=== PATIENT | male | born 1975 | race Caucasian/White ===

== ENCOUNTER 2020-09-04 06:56 | Outpatient (CLI) | payer BC, SELFPAY ==
--- NOTE | ~2020-09-04 | CT_ITS ---
EXAMINATION: CT cervical spine wo con DATE: 09/04/2020 07:22 INDICATION: Cervical radiculopathy. TECHNIQUE: Computed tomography (CT) of the cervical spine was performed without intravenous contrast. Automated exposure control and iterative reconstruction technique were employed. The dose-length pro duct was 437.17 mGy-cm. COMPARISON: CT cervical spine 06/07/2018 FINDINGS: There is 7 degrees levocurvature of cervical spine. There is kyphosis of cervical spine. Ve rtebral body heights are normal. There are changes of disc replacement at C5-C6. The device is obliqu willa oriented with respect to the vertebral bodies with the left side of the implant 5 mm anterior to the right side of the implant. There is mildly decreased disc height at C3-C4 and C4-C5. The followin g disc levels are specifically discussed: C2-C3: There is mild left uncovertebral joint osteoarthritis. There is mild left facet joint osteoart hritis. There is no neural foraminal stenosis. There is no central canal stenosis. C3-C4: There is moderate bilateral uncovertebral joint osteoarthritis. There is no facet joint osteoa rthritis. There is mild bilateral neural foraminal stenosis. There is mild central canal stenosis. C4-C5: There is mild bilateral uncovertebral joint osteoarthritis. There is no facet joint osteoarthr itis. There is no neural foraminal stenosis. There is mild central canal stenosis. C5-C6: There is severe right and moderate left uncovertebral joint osteoarthritis. There is no facet joint osteoarthritis. There is mild bilateral neural foraminal stenosis. There is mild central canal stenosis. C6-C7: There is no uncovertebral joint osteoarthritis. There is mild right facet joint osteoarthritis . There is no neural foraminal stenosis. There is no central canal stenosis. C7-T1: There is no uncovertebral joint osteoarthritis. There is mild bilateral facet joint osteoarthr itis. There is no neural foraminal stenosis. There is no central canal stenosis. IMPRESSION: 1. Mild cervical spondylosis. 2. Disc replacement at C5-C6 with oblique orientation of the implant with respect to the vertebral sabine dies. Reviewed, dictated and finalized at location A. IMPRESSION: 1. Mild cervical spondylosis. 2. Disc replacement at C5-C6 with oblique orientation of the implant with respe ct to the vertebral bodies.
--- NOTE | ~2020-09-04 | XR_ITS ---
EXAMINATION: XR_CERV2-3V_CR DATE: 09/04/2020 07:23 INDICATION: Cervical radiculopathy. TECHNIQUE: 3 views of cervical spine including flexion and extension views were obtained. COMPARISON: CT cervical spine 09/04/2020 FINDINGS: There is no abnormal motion with flexion or extension. There is a disc replacement at C5-C6 with up to 5 mm anterior displacement relative to its expected position. There is mildly decreased d isc height at C3-C4 and C4-C5. No central canal stenosis or prevertebral soft tissue swelling. IMPRESSION: 1. Mild cervical spondylosis. 2. Disc replacement at C5-C6 with 5 mm anterior extension of the implant beyond the vertebral bodies. Reviewed, dictated and finalized at location A.
== END 2020-09-04 06:57 | disposition home or self-care (01) ==
LOC: CHSIMG 06:59
PROVIDERS: PCP Family Medicine
DX: M54.12 Radiculopathy, cervical region (principal); M43.02 Spondylolysis, cervical region
CPT/HCPCS: 72040; 72125

== ENCOUNTER 2020-09-16 12:40 | Outpatient (CLI) | payer BC, SELFPAY ==
--- NOTE | ~2020-09-16 | MR_ITS ---
EXAMINATION: MR cervical spine wo con DATE: 09/16/2020 13:29 INDICATION: Cervical radiculopathy. TECHNIQUE: Magnetic resonance imaging (MRI) of the cervical spine was performed without intravenous c ontrast. Sequences included sagittal T2-weighted FSE, sagittal STIR FSE, sagittal T1-weighted FSE, ax ial MERGE, and axial T2-weighted FSE. COMPARISON: Cervical spine MRI 06/10/2019 FINDINGS: There is mild kyphosis of upper cervical spine. Vertebral body heights are normal. There ar e changes of disc replacement procedure at C5-C6. There is anterior extension of the implant beyond t he vertebral bodies. There is mildly decreased disc height at C4-C5. The spinal cord signal intensity is normal. The following disc levels are specifically discussed: C2-C3: The disc does not extend beyond the endplate margin. There is mild left uncovertebral joint os teoarthritis. There is mild bilateral facet joint osteoarthritis. There is no neural foraminal stenos is. There is no central canal stenosis. C3-C4: The disc is bulging. There is mild bilateral uncovertebral joint osteoarthritis. There is no f acet joint osteoarthritis. There is mild left neural foraminal stenosis. There is no central canal st enosis. C4-C5: The disc does not extend beyond the endplate margin. There is mild left uncovertebral joint os teoarthritis. There is mild right facet joint osteoarthritis. There is mild left neural foraminal ayesha nosis. There is no central canal stenosis. C5-C6: There is a right central protrusion. There is severe right and mild left uncovertebral joint o steoarthritis. There is no facet joint osteoarthritis. There is mild right neural foraminal stenosis. There is mild central canal stenosis with ventral indentation of spinal cord. C6-C7: The disc does not extend beyond the endplate margin. There is no uncovertebral joint osteoarth ritis. There is mild right facet joint osteoarthritis. There is no neural foraminal stenosis. There i s no central canal stenosis. C7-T1: The disc does not extend beyond the endplate margin. There is no uncovertebral joint osteoarth ritis. There is mild bilateral facet joint osteoarthritis. There is no neural foraminal stenosis. The re is no central canal stenosis. IMPRESSION: 1. Mild cervical spondylosis. 2. Disc replacement procedure at C5-C6 with anterior extension of the implant beyond the vertebral sabine dies. Reviewed, dictated and finalized at location A. IMPRESSION: 1. Mild cervical spondylosis. 2. Disc replacement procedure at C5-C6 with anterior extension of the implant b eyond the vertebral bodies.
== END 2020-09-16 12:41 | disposition home or self-care (01) ==
PROVIDERS: PCP Family Medicine
DX: M47.22 Other spondylosis with radiculopathy, cervical region (principal); Z98.890 Other specified postprocedural states
CPT/HCPCS: 72141

== ENCOUNTER 2022-08-26 09:03 | Outpatient (CLI) | payer BC, SELFPAY ==
--- NOTE | ~2022-08-26 | XR_ITS ---
EXAMINATION: XR knee RT 3V DATE: 08/26/2022 09:27 INDICATION: Right knee pain. TECHNIQUE: 3 views of right knee were obtained. COMPARISON: Right knee radiographs 10/25/2013 FINDINGS: Bone alignment is normal. No fracture. Again seen is sclerosis in posterior medial aspect o f femoral metadiaphysis, likely benign. There is mild tricompartmental osteoarthritis characterized b y tiny osteophytes. No joint space narrowing. No knee joint effusion. IMPRESSION: 1. Mild right knee osteoarthritis. Reviewed, dictated and finalized at location B.
[2022-08-26 09:14] LABS: Hematocrit 46.2 % (40.0-54.0); Hemoglobin 15.6 g/dL (14.0-18.0); Mean Corpuscular HGB Conc 33.8 g/dL (32.0-36.0); Mean Corpuscular Hemoglobin 29.9 pg (27.0-31.0); Mean Corpuscular Volume 88.5 fL (78.0-102.0); Mean Platelet Volume 8.7 fl (8.7-11.0); Platelet Count Result 261 K/mm3 (150-420); Red Blood Count 5.22 M/mm3 (4.70-6.10); Red Cell Distribution Width 12.6 % (11.6-14.4); White Blood Count 5.2 K/mm3 (4.8-10.8)
[2022-08-26 10:24] LABS: Alanine Aminotransferase 44 U/L (16-63); Albumin Level 3.8 g/dL (3.4-5.0); Alkaline Phosphatase 102 U/L (46-116); Anion Gap 8 mmol/L (8-16); Aspartate Amino Transferase 21 U/L (15-37); Bilirubin,Total 0.5 mg/dL (0.00-1.00); Blood Urea Nitrogen 19 mg/dL (7-18); Calcium 8.8 mg/dL (8.5-10.1); Carbon Dioxide 28 mmol/L (21-32); Chloride 106 mmol/L (98-108); Cholesterol 229 mg/dL (0-200); Estimated Glomerular Filt Rate > 60; Glucose 124 mg/dL (70-99); HDL Direct 53 mg/dL (40-60); LDL Cholesterol Calculated 161 mg/dL (<130); Osmolality Calculated 297 mOsm/kg (285-295); Potassium 4.4 mmol/L (3.5-5.1); Sodium 142 mmol/L (136-145); Total Protein 6.7 g/dL (6.4-8.2); Triglycerides 76 mg/dL (0-150)
[2022-08-26 12:07] LABS: Hemoglobin A1C 5.5 % (<5.7)
== END 2022-08-26 09:04 | disposition home or self-care (01) ==
LOC: CHSLAB 09:04
PROVIDERS: PCP Family Medicine; Visit Provider Family Medicine
DX: M25.561 Pain in right knee (principal); I10 Essential (primary) hypertension; E11.9 Type 2 diabetes mellitus without complications
CPT/HCPCS: 36415; 73562; 80053; 80061; 83036; 85027

== ENCOUNTER 2022-09-05 08:31 | Outpatient (CLI) | payer BC, SELFPAY ==
--- NOTE | 2022-09-05 13:00 | WPDCARIOSTRE ---
Nuclear Stress Test INDICATIONS Indications: Chest pain PROCEDURE Procedure Performed: Myocardial Perf Spect-Multi Procedure: Patient underwent a lexiscan stress test and immediately was injected with 29.7 mCi of cardiolyte. Multiple tomographic images were obtained. These are of good quality. There is no evidence of perfusion defect with stress imaging. A separate resting images were obtained after patient was injected with 10.0 mCi of cardiolyte. Multiple tomographic images were obtained. These are of good quality. There is no evidence of perfusion defect with rest imaging. CONCLUSION Conclusion: 1. Normal myocardial perfusion imaging demonstrating no perfusion defects with stress or rest imaging. 2. No reversible ischemia. 3. Left ventriculogram demonstrates normal measured ejection fraction of 57% with no wall motion abnormalities. 4. TID score 0.98 is normal.
== END 2022-09-05 08:32 | disposition home or self-care (01) ==
PROVIDERS: PCP Family Medicine; Visit Provider Family Medicine
DX: R07.9 Chest pain, unspecified (principal)
CPT/HCPCS: 78452; 93017; A9502; J2785

== ENCOUNTER 2025-03-29 14:32 | Emergency (ER) | payer OTHER, SELFPAY ==
[2025-03-29 14:33] VITALS: BP 161/96; PULSE 77; RESP 16; TEMP 36.8; O2SAT 98
--- OUTSIDE RECORDS SUMMARY | 2025-03-29 14:35 | XMS_ITS | Continuity of Care Document ---
Author Organization [facility] Address [address] [place] [address] Phone Care Team Providers Care Optoelectronics Engineer Name Role Phone Camden Hong MD Unavailable Unavailable Medications Medication Instructions Dosage Effective Dates (start - stop) Status Comments CONZIP (unknown strength) Not Available - Active Procedures Procedure Date OFFICE/OUTPATIENT VISIT EST POSTOP FOLLOW-UP VISIT POSTOP FOLLOW-UP VISIT POSTOP FOLLOW-UP VISIT OFFICE CONSULTATION Advance Directives Directive Yes / No Effective Date File Name No Information Encounters Encounter Description Practice Location Reason(s) For Visit Diagnoses Date Provider Providers Copied on Encounter [facility] , [address] [address], [place], [address], [place] tel:[phone] [facility] No Information 7 Hal Hannah. [address] [facility] [facility] [address] [place], [place], [id number] . tel:[phone] OFFICE/OUTPATI ENT VISIT EST [facility] , [address], [place], [address], [place] tel:[phone] [facility] 4 Tomeka Carrillo. [address], [place], [place], [id number] . tel:[phone] Referring Provider: Adelaide Kendall, [address] [place], [address]. tel:[phone] [facility] , [address], [place], [address], [place] tel:[phone] [facility] Aftercare following surgery 0 8 4 Tomeka Carrillo. [address], [place], [place], [id number] . tel: [phone] [facility] , [address], [place], [address], tel:[phone] [facility] Aftercare following surgery 4 Tomeka Carrillo. [address], [place], [place], [address] . tel: [phone] [facility] , [address] [facility] [address] [address], [place], [address], tel:[phone] [facility] Aftercare following surgery 4 Tomeka Carrillo. [address], [place], [place], [address] . tel: [phone] OFFICE CONSULTATION [facility] , [address] [facility] [address] [facility] [address], [place], [address], tel:[phone] [facility] Tear of medial cartilage or meniscus of knee, currHyperten alejandra, Unspecified 4 Tomeka Carrillo. [address], [place], [place], [address] . tel: [phone] Referring Provider: Adelaide Kendall, [address] [place], [address]. tel:[phone] Family History Family Member Type Diagnosis Age At Onset Problem (finding) Family history of chronic obstructive lung disease Problem (finding) Family history of Diabe tamiko mellitus Problem (finding) Family history of alcoh olism Problem (finding) Family history of malignant neoplasm of lung Payers Payer name Insurance type Covered constitution party ID Authoriza tion(s) No Information Social History Type Description Quantity Date Captured Comments Sex Male Smoking Status No Information Chief Complaint And Reason For Visit No Information Reason For Referral Reason For Referral No Information History Of Present Illness Encounter Date Complaint History Of Prese nt Illness No Information Functional Status Date Functional Assessmen t No Information Instructions Date Instruction Additional Infor mation Protective activity ROM as tolerated Protective activity ROM as tolerated Activity as tolerated ROM as tolerated Protective activity ROM as tolerated Protective activity Discussed post-operative precaut ions ROM as tolerated Assessments Type Assessment Date No Information Patient Care Teams Name Effective Dates (start - stop) Status Members No Information
--- OUTSIDE RECORDS SUMMARY | 2025-03-29 14:35 | XMS_ITS | Clinical Summary ---
Author Organization [facility] Address On license of [facility] [place] [address] Care Team Providers Care Rn Case Mgr Name Role Phone Unavailable Primary Care Provider Unavailabl e Social History Tobacco Use Types Packs/Day Years Used Date Smoking Tobacco: Never Assessed Sex and Gender Information Value Date Recorded Sex Assigned at Not on file Legal Sex Male 9:53 PM CDT Gender Identity Not on file Sexual Orientation Not on file Plan of Treatment Health Maintenance Due Date Last Done Comments Colorectal Cancer Screening Colonoscopy (10 Years) 1976 Annual Physical 1979 Hepatitis C 1994 DTaP, Tdap and Td Vaccines ( 1 - Tdap) 1995 Hepatitis B Vaccines (1 of 3 - 19+ 3-dose series) 1995 COVID-19 Vaccine (2023-2 5 season) 2024 Meningococcal B Vaccine Aged Out No l onger eligible based on patient's age to complete this topic Meningococcal Vaccine Aged Out No paras denae eligible based on patient's age to complete this topic Pneumococcal Vaccine: Pediat rics (0 to 5 Years) and At-Risk Patients (6 to 49 Years) Aged Out No longer eligible b ased on patient's age to complete this topic RSV Immunizations Under 20 Months Aged Out No longer eligible based on patient's age to complete this topic
[2025-03-29] MEDS: TETANUS,DIPHTHERIA,AC PERTUSSIS ADULT 0.5 ML (ADACEL) IM (14:41)
--- NOTE | 2025-03-29 14:53 | ED_ITS ---
HPI - Skin/Abscess/Foreign Bdy General Chief complaint: Skin/Abscess/Foreign Body Stated complaint: fish hook in left hand Time Seen by Provider: 03/29/25 14:34 Source: patient Mode of arrival: ambulatory Limitations: no limitations History of Present Illness HPI narrative: this is a 49-year-old male that presents with a fishhook that is located in the palm of his left hand with no other injuries no fever chills. complaint: other ( fishhook in left hand) Onset (ago): hour(s) Tetanus up to date: no Severity: mild Pain Consistency: constant Related Data Allergies Allergy/AdvReac Type Severity Reaction Status Date / Time No Known Allergies Allergy Verified 03/29/25 14:34 Review of Systems Review of Systems: All systems reviewed & are unremarkable except as noted in HPI and below PMFSH Past Medical History Medical History Right knee pain Benign essential hypertension Cigarette nicotine dependence GERD (gastroesophageal reflux disease) Overweight Surgical History Surgical History History of right knee surgery Meniscus Tear Social History Social History Smoking status: Never smoker Alcohol intake: never Substance use type: marijuana Occupation/Education: occupation Additional occupation/education comments: [employer] Course Emergency Course: Lidocaine applied to the hand to numb the area and forceps and 11 blade were used to make a small cut and forceps used to dislodge the fissure. Successful dislodgement and patient tolerated procedure well. Vital Signs Vital signs: Vital Signs Temperature 36.8 C 03/29/25 14:33 Pulse Rate 77 03/29/25 14:33 Respiratory Rate 16 03/29/25 14:33 Blood Pressure 161/96 H 03/29/25 14:33 Pulse Oximetry 98 03/29/25 14:33 Oxygen Delivery Room Air 03/29/25 14:33 Temperature 36.8 C 03/29/25 14:33 Pulse Rate 77 03/29/25 14:33 Respiratory Rate 16 03/29/25 14:33 Blood Pressure 161/96 H 03/29/25 14:33 Pulse Oximetry 98 03/29/25 14:33 Oxygen Delivery Room Air 03/29/25 14:33 Critical Care Time Critical Care Time Critical Care Time: No Discharge Plan Discharge Clinical Impression: [place] injury to finger Qualifiers: Encounter type: initial encounter Laterality: left Qualified Code(s): S69.92XA - Unspecified injury of left wrist, hand and finger(s), initial encounter Patient Disposition: Home Condition: Stable Instructions: Antibiotic Form, Soft Tissue Foreign Body (ED) Additional Instructions: advised patient to take medication as prescribed, Tylenol or Motrin as needed and follow with primary if symptoms persist or worsen. Patient Language: Sri [place]an Prescriptions: New amoxicillin-pot clavulanate [Augmentin] 500-125 mg tablet 1 tablet PO TID 10 Days Qty: 30 0RF No Action Saxenda 3 mg/0.5 mL (18 mg/3 mL) pen injector See Rx Instructions subcut .COMPLEX Qty: 15 11RF Rx Instructions: inject subcutaneously once daily: week 1 = 0.6 mg; week 2 = 1.2 mg; week 3 = 1.8 mg; week 4 = 2.4 mg; then 3 mg daily subcut cyclobenzaprine 10 mg tablet 10 mg PO TID PRN (Reason: muscle spasm) Qty: 30 0RF lisinopril 20 mg tablet See Rx Instructions .ROUTE .COMPLEX Qty: 90 2RF Dose Instruction: TAKE ONE TABLET BY MOUTH DAILY Rx Instructions: TAKE ONE TABLET BY MOUTH DAILY atorvastatin 40 mg tablet See Rx Instructions .ROUTE .COMPLEX Qty: 90 2RF Dose Instruction: TAKE ONE TABLET BY MOUTH DAILY Rx Instructions: TAKE ONE TABLET BY MOUTH DAILY permethrin 5 % cream 1 applic topical Q14D Qty: 60 0RF Rx Instructions: apply second treatment 14 days after first treatment if live lice remain Follow-up/Referrals: Dutch Chung DO [Primary Care Provider] - Time of Disposition: 14:56
--- OUTSIDE RECORDS SUMMARY | 2025-03-29 15:05 | XMS_ITS | Clinical Summary ---
Author Organization [facility] Address [facility] [place] [address] Care Team Providers Care Plate Fitter Name Role Phone Unavailable Primary Care Provider [...]
--- OUTSIDE RECORDS SUMMARY | 2025-03-29 15:05 | XMS_ITS | Continuity of Care Document ---
Author Organization [facility] Address [address] [place] [address] Phone Care Team Providers Care Metal Mixer Name Role Phone Camden Hong MD Unavailable [...] Diagnoses Date Provider Providers Copied on Encounter [facility] , [address] [address], [place], [address], [place] tel:[phone] [facility] No Information 7 Hal Hannah. [address] [facility] [place], [place], [id number] . tel:[phone] OFFICE/OUTPATI ENT VISIT EST [facility] , [address], [place], [address], [place] tel:[phone] [facility] 4 Tomeka Carrillo. [address], [place], [place], [address] . tel:[phone] Referring Provider: Adelaide Kendall, [address] [place], [address]. tel:[phone] [facility] , [address], [place], [address], [place] tel:[phone] [facility] [place] Aftercare following surgery 0 8 4 Tomeka Carrillo. [address], [place], [place], [id number] . tel: [phone] [facility] , [address], [place], [address], tel:[phone] [facility] Aftercare following surgery 4 Tomeka Carrillo. [address], [place], [place], [id number] . tel: [phone] [facility] , [address] [facility] [address] [address], [place], [address], tel:[phone] [facility] Aftercare following surgery 4 Tomeka Carrillo. [address], [place], [place], [address] . tel: [phone] OFFICE CONSULTATION [facility] , [address] [facility] [address] [facility] [address], [place], [address], tel:[phone] [facility] Tear of medial cartilage or meniscus of knee, currHyperten alejandra, Unspecified 4 Tomeka Carrillo. [address], [place], [place], [address] . tel: [phone] Referring Provider: Adelaide Kendall, [address] [place], [address]. tel:[phone] Family History Family Member Type Diagnosis Age At Onset Problem (finding) Family history of chronic obstructive lung disease Problem (finding) Family history of Diabe tamiko mellitus Problem (finding) Family history of alcoh olism Problem (finding) Family history of malignant neoplasm of lung Payers Payer name Insurance type Covered alliance party ID Authoriza tion(s) No Information Social [...]
[2025-03-29 15:08] VITALS: BP 161/96; PULSE 77; RESP 16; TEMP 36.8; O2SAT 98
== END 2025-03-29 15:08 | disposition home or self-care (01) ==
PROVIDERS: Emergency Provider Emergency Medicine; PCP Family Medicine
DX: S61.442A Puncture wound with foreign body of left hand, initial encounter (principal); I10 Essential (primary) hypertension; Z23 Encounter for immunization; W45.8XXA Other foreign body or object entering through skin, initial encounter
CPT/HCPCS: 10120; 90471; 90715; 99283

== ENCOUNTER 2025-05-20 09:22 | Outpatient (CLI) | payer OTHER, SELFPAY ==
[2025-05-20 09:35] LABS: Hematocrit 46.6 % (40.0-54.0); Hemoglobin 15.6 g/dL (14.0-18.0); Immature Granulocyte Percent A 0.3 % (0.0-0.0); Lymphocytes Absolute Auto 1.92 K/mm3 (1.10-4.50); Mean Corpuscular HGB Conc 33.5 g/dL (32-36); Mean Corpuscular Hemoglobin 29.3 pg (27.0-31.0); Mean Corpuscular Volume 87.4 fL (78.0-102.0); Nucleated Red Blood Cells Absolute Auto 0.00 K/mm3 (0.00-0.00); Nucleated Red Blood Cells Perc 0.0 % (0-0.0); Platelet Count Result 290 K/mm3 (150-420); Red Blood Count 5.33 M/mm3 (4.70-6.10); White Blood Count 6.6 K/mm3 (4.8-10.8)
[2025-05-20 09:53] LABS: Hemoglobin A1C. 5.4 % (<5.7)
[2025-05-20 09:55] LABS: MALB Creatinine Ratio 3.9 mg/g (0-30)
[2025-05-20 10:04] LABS: Alanine Aminotransferase 28 U/L (6-50); Albumin Level 4.0 g/dL (3.5-5.1); Alkaline Phosphatase 93 U/L (38-126); Anion Gap 4 mmol/L (4-12); Aspartate Amino Transferase 29 U/L (17-59); Bilirubin,Total 0.8 mg/dL (0.2-1.3); Blood Urea Nitrogen 17 mg/dL (9-20); Calcium 9.0 mg/dL (8.4-10.2); Carbon Dioxide 26 mmol/L (22-30); Chloride 109 mmol/L (98-107); Cholesterol 224 mg/dL (0-200); Estimated Glomerular Filt Rate > 60; Glucose 107 mg/dL (65-110); HDL Direct 55 mg/dL; Osmolality Calculated 289 mOsm/kg (285-295); Potassium 4.4 mmol/L (3.4-5.0); Sodium 139 mmol/L (137-145); Total Protein 6.7 g/dL (6.3-8.2); Triglycerides 96 mg/dL (<150)
== END 2025-05-20 09:23 | disposition home or self-care (01) ==
LOC: CHSLAB 09:23
PROVIDERS: PCP Family Medicine; Visit Provider Family Medicine
DX: I10 Essential (primary) hypertension (principal); E11.9 Type 2 diabetes mellitus without complications
CPT/HCPCS: 36415; 80053; 80061; 82043; 83036; 85025